=== PATIENT | female | born 1940 | race Caucasian/White ===

== ENCOUNTER 2016-11-02 14:29 | Outpatient (CLI) | payer MEDICARE, OTHER | END 2016-11-02 14:30 | disposition critical access hospital (66) | LOC: EMS 14:29 | PROVIDERS: ATTEND Surgery | DX: R41.0 Disorientation, unspecified (principal); R50.9 Fever, unspecified; R53.83 Other fatigue | CPT/HCPCS: A0425; A0429 ==

== ENCOUNTER 2016-11-02 14:42 | Emergency (ER) | payer MEDICARE, OTHER ==
[2016-11-02] MEDS ORDERED: ACETAMINOPHEN 325 MG TABLET PO STA (14:59)
[2016-11-02] MEDS ORDERED: ACETAMINOPHEN 325 MG TABLET PO ONE (15:18)
--- NOTE | 2016-11-02 15:19 | ED Physician Documentation ---
History of Present Illness - Stated complaint Stated Complaint: FEVER - Chief complaint Chief Complaint: Fever - History obtained from History obtained from: Patient, Family - Additonal information Additional information: Patient is a pleasant 76-year-old female who lives in her private home. She is accompanied by her . She was fine yesterday he says. Today she slept till about noon and woke up and is very sleepy and appeared confused. She is complaining of a headache and appeared bright red in appearance and was palpably warm to touch. She also complained of shortness of breath at that time. Currently the patient complains of a headache and denies any chest pain, shortness of breath, nausea, vomiting constipation diarrhea or lower urinary symptoms. She has a history of type 2 diabetes treated with diet, asthma, migraine headaches and has had cataract and knee surgery in the past as well as a hysterectomy. She does have a history of urinary incontinence. Review of systems: For pertinent positive and negatives in the review of systems please see the history of present illness, otherwise all other systems have been reviewed and are negative. Dragon disclaimer: Parts of this medical record were created using voice recognition technology. Because of the inherent limitations of this system, occasional same sounding word substitutions do occur and persist despite proofreading. Please read the document for context. Review of Systems Constitutional: reports: Fever, Chills Nose: denies: Rhinorrhea / runny nose, Foreign Body Throat: denies: Oral lesions / sores Cardiac: denies: Chest pain / pressure, Palpitations Respiratory: reports: Dyspnea. denies: Cough, Hemoptysis, Wheezing GI: denies: Abdominal Pain, Abdominal Swelling, Nausea, Vomiting, Bloody / black stool : denies: Dysuria, Frequency, LMP Skin: denies: Rash, Lesions Musculoskeletal: denies: Neck pain, Extremity pain Neurologic: reports: Generalized weakness, Confused, Altered mental status PD PAST MEDICAL HISTORY - Past Medical History Past Medical History: Yes Cardiovascular: High cholesterol Respiratory: Asthma Endocrine/Autoimmune: Type 2 diabetes - Past Surgical History Past Surgical History: Yes Ortho: Arthroscopic surgery /SURGICAL RESIDENT: Hysterectomy HEENT: Cataracts - Present Medications Home Medications: Ambulatory Orders Medication Instructions Recorded Confirmed Albuterol 11/02/16 Carbidopa/Levodopa 1 tab PO DAILY 11/02/16 11/02/16 [Carbidopa-Levodopa 25-100 Tab] Cephalexin [Keflex] 500 mg PO QID #20 capsule 11/02/16 Enalapril/Hydrochlorothiazide 1 tab PO DAILY 11/02/16 11/02/16 [Enalapril-Hctz 10-25 mg Tablet] Fluoxetine HCl [Prozac] 40 mg PO DAILY 11/02/16 11/02/16 Gabapentin 300 mg PO DAILY 11/02/16 11/02/16 Montelukast [Singulair] 10 mg 11/02/16 Oxybutynin Chloride [Ditropan Xl] 10 mg PO DAILY 11/02/16 11/02/16 Solifenacin Succinate [Vesicare] 5 mg PO DAILY 11/02/16 11/02/16 Sumatriptan Succinate [Imitrex] PRN 11/02/16 - Allergies Allergies/Adverse Reactions: Allergies Allergy/AdvReac Type Severity Reaction Status Date / Time Jsiumtc-Zer-Kor Reductase Allergy Unknown Verified 11/02/16 14:47 Inhibitor - Social History Does the pt smoke?: No Smoking Status: Never smoker Does the pt have substance abuse?: No Results - Vitals Vitals: Vital Signs - 24 hr 11/02/16 11/02/16 11/02/16 14:46 17:43 17:44 Temperature 38.3 C H Heart Rate 79 67 Respiratory 18 11 L 16 Rate Blood Pressure 126/63 99/62 O2 Saturation 96 96 11/02/16 17:58 Temperature 37.5 C Heart Rate Respiratory Rate Blood Pressure O2 Saturation Oxygen O2 Source Room air - Labs Labs: Laboratory Tests 11/02/16 11/02/16 11/02/16 15:24 15:35 15:35 WBC 17.2 H RBC 3.87 L Hgb 11.6 L Hct 34.2 L MCV 88.5 MCH 30.1 MCHC 34.0 RDW 13.6 Plt Count 192 MPV 8.7 Neut # 14.7 H Lymph # 1.2 L Bradley # 1.2 H Eos # 0.0 Baso # 0.1 Absolute Nucleated RBC 0.01 Nucleated RBCs 0.0 PT 13.7 H INR 1.2 Sodium Potassium Chloride Carbon Dioxide Anion Gap BUN Creatinine Estimated GFR (MDRD) Glucose Lactic Acid Calcium Total Bilirubin AST ALT Alkaline Phosphatase Troponin I Total Protein Albumin Globulin Albumin/Globulin Ratio Lipase Urine Color YELLOW Urine Clarity CLEAR Urine pH 7.0 Ur Specific [place] <=1.005 Urine Protein NEGATIVE Urine Glucose (UA) NEGATIVE Urine Ketones NEGATIVE Urine Occult Blood MODERATE H Urine Nitrite POSITIVE H Urine Bilirubin NEGATIVE Urine Urobilinogen 0.2 (NORMAL) Ur Leukocyte Esterase LARGE H Urine RBC TNTC H Urine WBC >25 H Urine WBC Clumps PRESENT Ur Squamous Epith Cells MOD Squamous H Urine Bacteria Many H Ur Microscopic Review INDICATED Urine Culture Comments NOT INDICATED 11/02/16 11/02/16 11/02/16 15:35 15:35 15:35 WBC RBC Hgb Hct MCV MCH MCHC RDW Plt Count MPV Neut # Lymph # Bradley # Eos # Baso # Absolute Nucleated RBC Nucleated RBCs PT INR Sodium 135 Potassium 3.3 L Chloride 98 L Carbon Dioxide 28 Anion Gap 9.0 BUN 17 Creatinine 0.9 Estimated GFR (MDRD) 61 L Glucose 166 H Lactic Acid 1.1 Calcium 9.0 Total Bilirubin 1.0 AST 21 ALT 23 Alkaline Phosphatase 47 Troponin I < 0.04 Total Protein 7.2 Albumin 3.9 Globulin 3.3 Albumin/Globulin Ratio 1.2 Lipase 14 L Urine Color Urine Clarity Urine pH Ur Specific [place] Urine Protein Urine Glucose (UA) Urine Ketones Urine Occult Blood Urine Nitrite Urine Bilirubin Urine Urobilinogen Ur Leukocyte Esterase Urine RBC Urine WBC Urine WBC Clumps Ur Squamous Epith Cells Urine Bacteria Ur Microscopic Review Urine Culture Comments PD MEDICAL DECISION MAKING - ED course Complexity details: reviewed old records, reviewed results, re-evaluated patient , d/w patient ED course: Resident elderly female who lives at home with her who comes in with with a complaint of fever and mild confusion. On exam she is palpably warm to touch and is alert and oriented although a little slow to respond. Blood pressure and pulse were normal. She was given IV fluids and EKG shows normal sinus rhythm with a normal MA QRS QT interval the rate is 75 the EKG does show voltage criteria consistent with LVH. Blood work on this patient does show elevated white blood cell count. The rest of her labs are unremarkable. Chest x-ray shows no acute disease but urine does demonstrate a urinary tract infection. The patient is watched here for a couple hours in the emergency department she is given Tylenol, Motrin 2 L of normal saline and 1 g Rocephin. At this time she is completely back to baseline. I suspect her altered mental status and symptoms are all related to urinary tract infection on recheck she is doing well. She is offered admission but prefers to go home. Her does agree to watch her very closely and have her come back should any of her symptoms recur. We will place her on outpatient antibiotics. Disposition: To home Clinical impression: 1. Altered mental status-resolved 2. Urinary tract infection Departure - Departure Disposition: , Self Care Clinical Impression: Urinary tract infection Condition: Good Instructions: ED UTI Cystitis Female Follow-Up: Alejandro Ko MD [Primary Care Provider] - Prescriptions: Cephalexin [Keflex] 500 mg PO QID #20 capsule
[2016-11-02 15:42] LABS: BILIRUBIN,URINE NEGATIVE (NEGATIVE)
--- NOTE | 2016-11-02 15:43 | XRAY Preliminary Report ---
Exam: XR Chest 1 View IMPRESSION: No acute intrathoracic plain film abnormality. [facility] SITE ID: [id number]
[2016-11-02 15:44] LABS: BASOPHILS # (AUTO) 0.1 10^3/uL (0.0-0.1); BASOPHILS % (AUTO) 0.7 %; EOSINOPHILS % (AUTO) 0.1 %; HCT - HEMATOCRIT 34.2 % (37.0-47.0); HGB - HEMOGLOBIN 11.6 g/dL (12.0-16.0); LYMPHOCYTES # (AUTO) 1.2 10^3/uL (1.5-3.5); LYMPHOCYTES % (AUTO) 6.8 %; MEAN CORPUSCULAR HEMOGLOBIN 30.1 pg (27.0-31.0); MEAN CORPUSCULAR VOLUME 88.5 fL (81.0-99.0); MEAN PLATELET VOLUME 8.7 fL (7.9-10.8); MONOCYTES # (AUTO) 1.2 10^3/uL (0.0-1.0); NEUTROPHILS # (AUTO) 14.7 10^3/uL (1.5-6.6); NEUTROPHILS % (AUTO) 85.4 %; RED BLOOD COUNT 3.87 10^6/uL (4.20-5.40); RED CELL DISTRIBUTION WIDTH 13.6 % (12.0-15.0); UNCORRECTED WHITE BLOOD COUNT 17.2 x10^3/uL; WHITE BLOOD COUNT 17.2 x10^3/uL (4.8-10.8)
--- NOTE | 2016-11-02 15:45 | XRAY Report ---
EXAM: CHEST RADIOGRAPHY EXAM DATE: 11/02/2016 03:17 PM. CLINICAL HISTORY: FEVER. COMPARISON: None. TECHNIQUE: 1 view. FINDINGS: Lungs/Pleura: No focal opacities evident. No pleural effusion. No pneumothorax. Mediastinum: There is mild cardiomegaly with thoracic aortic tortuosity. Other: Likely moderate-sized hiatal hernia. IMPRESSION: No acute intrathoracic plain film abnormality. [facility] Referring Provider Line: [phone] SITE ID: [id number]
[2016-11-02 15:58] LABS: INR 1.2 (0.8-1.2); PT - PROTHROMBIN TIME 13.7 secs (9.9-12.6)
[2016-11-02 16:00] LABS: ALBUMIN/GLOBULIN RATIO 1.2 (1.0-2.2); CREATININE 0.9 mg/dL (0.4-1.0); POTASSIUM 3.3 mmol/L (3.5-5.0); TOTAL PROTEIN 7.2 g/dL (6.7-8.2)
[2016-11-02 16:14] LABS: UA w/ MICROSCOPIC CHARGE YES
[2016-11-02 16:15] LABS: WBC,URINE >25 /HPF (0-5)
[2016-11-02 16:16] LABS: UR CULTURE IF IND NOT INDICATED
[2016-11-02] MEDS ORDERED: cefTRIAXone 1 GM VIAL IM STA (16:33)
[2016-11-02] MEDS ORDERED: SODIUM CHLORIDE 0.9% 1,000 ML IV ONE (16:38)
[2016-11-02] MEDS ORDERED: IBUPROFEN 600 MG TABLET PO STA (16:38)
[2016-11-02] MEDS ORDERED: cefTRIAXone 1 GM in SODIUM CHLORIDE 0.9% MINIBAG 100 ML IV STA (16:46)
[2016-11-02] MEDS ORDERED: IBUPROFEN 600 MG TABLET PO ONE (16:50)
[2016-11-02] MEDS ORDERED: SODIUM CHLORIDE FLUSH 0.9% 10 ML SYRINGE IVP ONE (16:51)
[2016-11-02] MEDS ORDERED: cefTRIAXone 1 GM VIAL ONE (16:51)
[2016-11-02 18:49] VITALS: BP 110/66
== END 2016-11-02 18:40 | disposition home or self-care (01) ==
LOC: EDUNIT# → ED 14:42
DX: N39.0 Urinary tract infection, site not specified (principal); I45.2 Bifascicular block; E11.9 Type 2 diabetes mellitus without complications
CPT/HCPCS: 36415; 71010; 80053; 81001; 83605; 83690; 84484; 85025; 85610; 87040; 87181; 93005; 96372; 96374; 99284; A9270; 81003; 87086

== ENCOUNTER 2016-11-03 10:10 | Inpatient (IN) | payer MEDICARE, OTHER ==
--- NOTE | 2016-11-03 12:07 | ED Physician Documentation ---
History of Present Illness - Stated complaint Stated Complaint: INFECTION RE CHECK - Chief complaint Chief Complaint: UTI - History obtained from History obtained from: Patient, Family - History of Present Illness Timing: Yesterday - Additonal information Additional information: 76-year-old female was seen in the emergency department yesterday for acute illness with symptoms of excessive sleepiness and confusion and was found to have urinary tract infection. She was called back to the emergency department today because her blood grew out a gram-negative organism. She states that she feels somewhat better today she does still have chills and is slower than usual but does not feel sick like she did yesterday.Yesterday she received 2 L of saline and 1 g of Rocephin in the emergency department and she has been placed on some Keflex. Review of Systems Constitutional: reports: Fever, Chills, Myalgias, Fatigue Eyes: denies: Decreased vision Ears: denies: Ear pain Nose: denies: Rhinorrhea / runny nose, Congestion Throat: denies: Sore throat Cardiac: denies: Chest pain / pressure, Palpitations Respiratory: denies: Dyspnea, Cough GI: reports: Nausea. denies: Abdominal Pain, Vomiting : reports: Dysuria, Frequency Skin: denies: Rash Musculoskeletal: denies: Neck pain, Back pain, Extremity pain Neurologic: reports: Generalized weakness. denies: Focal weakness, Numbness PD PAST MEDICAL HISTORY - Past Medical History Past Medical History: Yes Cardiovascular: High cholesterol Respiratory: Asthma Endocrine/Autoimmune: Type 2 diabetes - Past Surgical History Past Surgical History: Yes Ortho: Arthroscopic surgery /PASTRY ASSISTANT: Hysterectomy HEENT: Cataracts - Present Medications Home Medications: Ambulatory Orders Medication Instructions Recorded Confirmed Albuterol 11/02/16 Carbidopa/Levodopa 1 tab PO DAILY 11/02/16 11/02/16 [Carbidopa-Levodopa 25-100 Tab] Cephalexin [Keflex] 500 mg PO QID #20 capsule 11/02/16 Enalapril/Hydrochlorothiazide 1 tab PO DAILY 11/02/16 11/02/16 [Enalapril-Hctz 10-25 mg Tablet] Fluoxetine HCl [Prozac] 40 mg PO DAILY 11/02/16 11/02/16 Gabapentin 300 mg PO DAILY 11/02/16 11/02/16 Montelukast [Singulair] 10 mg 11/02/16 Oxybutynin Chloride [Ditropan Xl] 10 mg PO DAILY 11/02/16 11/02/16 Solifenacin Succinate [Vesicare] 5 mg PO DAILY 11/02/16 11/02/16 Sumatriptan Succinate [Imitrex] PRN 11/02/16 - Allergies Allergies/Adverse Reactions: Allergies Allergy/AdvReac Type Severity Reaction Status Date / Time [id number]-[id number]-Gcc Reductase Allergy Unknown Verified 11/03/16 10:24 Inhibitor - Social History Does the pt smoke?: No Smoking Status: Never smoker Does the pt drink ETOH?: Yes Does the pt have substance abuse?: No - Immunizations Immunizations are current?: Yes - POLST Patient has POLST: No PD ED PE NORMAL - Vitals Vital signs reviewed: Yes (normal. ) - General General: Alert and oriented X 3, Well developed/nourished, Other (The patient is warm to the touch and has shaking chills) - HEENT HEENT: Atraumatic, PERRL, EOMI - Neck Neck: Supple, no meningeal sign - Cardiac Cardiac: RRR, No murmur - Respiratory Respiratory: No respiratory distress, Clear bilaterally - Abdomen Abdomen: Soft, Non tender - Back Back: No CVA TTP, No spinal TTP - Derm Derm: Normal color, Warm and dry, No rash - Extremities Extremities: No deformity, No edema - Neuro Neuro: Alert and oriented X 3, route service manager 2-12 intact, No motor deficit, No sensory deficit, Normal speech - Psych Psych: Normal mood, Normal affect Results - Vitals Vitals: Vital Signs - 24 hr 11/03/16 11/03/16 11/03/16 10:19 11:34 12:35 Temperature 37.1 C 39.6 C H Heart Rate 73 61 70 Respiratory 20 18 16 Rate Blood Pressure 122/64 111/60 116/70 O2 Saturation 94 100 100 Oxygen O2 Source Room air - Labs Labs: Laboratory Tests 11/03/16 12:20 WBC 13.2 H RBC 3.57 L Hgb 10.8 L Hct 31.8 L MCV 89.3 MCH 30.3 MCHC 33.9 RDW 14.0 Plt Count 155 MPV 10.0 Neut # 11.5 H Lymph # 0.9 L [place] # 0.7 Eos # 0.0 Baso # 0.0 Absolute Nucleated RBC 0.00 Nucleated RBCs 0.0 Procedures - IVC sono (time) 1200 Bedside IVC sono: IVC measures (cm) (2.08), Euvolemia PD MEDICAL DECISION MAKING - ED course Complexity details: reviewed old records, reviewed results, re-evaluated patient , considered differential, d/w patient, d/w family ED course: 76 y/o female with fever and chills has a UTI and was treated for this yesterday in the ED with rocephin IV and saline and felt improved. She continues to have some weakness and has spiked a fever in the ED this afternoon. She was asked to come back to the ED today when her blood cultures grew our Klebsiell pneumonia from both anerobic bottles. Here in the ED a line is begun and she is given an second dose of rocephin and prepared for admission. Departure - Departure Disposition: 66 [facility] DC/Xfer Clinical Impression: Bacteremia due to Gram-negative bacteria Urinary tract infection Qualifiers: Urinary tract infection type: acute cystitis Hematuria presence: without hematuria Qualified Code(s): N30.00 - Acute cystitis without hematuria
[2016-11-03] MEDS ORDERED: ACETAMINOPHEN 500 MG TABLET PO STA (12:36)
[2016-11-03] MEDS ORDERED: ACETAMINOPHEN 500 MG TABLET PO ONE (12:43)
[2016-11-03] MEDS ORDERED: SODIUM CHLORIDE FLUSH 0.9% 10 ML SYRINGE IVP ONE (12:43)
[2016-11-03 13:00] LABS: BASOPHILS % (AUTO) 0.2 %; EOSINOPHILS % (AUTO) 0.3 %; HCT - HEMATOCRIT 31.8 % (37.0-47.0); HGB - HEMOGLOBIN 10.8 g/dL (12.0-16.0); LYMPHOCYTES # (AUTO) 0.9 10^3/uL (1.5-3.5); LYMPHOCYTES % (AUTO) 6.9 %; MEAN CORPUSCULAR HEMOGLOBIN 30.3 pg (27.0-31.0); MEAN CORPUSCULAR HGB CONC 33.9 g/dL (32.0-36.0); MEAN CORPUSCULAR VOLUME 89.3 fL (81.0-99.0); MONOCYTES # (AUTO) 0.7 10^3/uL (0.0-1.0); MONOCYTES % (AUTO) 5.3 %; NEUTROPHILS # (AUTO) 11.5 10^3/uL (1.5-6.6); NEUTROPHILS % (AUTO) 87.3 %; RED BLOOD COUNT 3.57 10^6/uL (4.20-5.40); UNCORRECTED WHITE BLOOD COUNT 13.2 x10^3/uL; WHITE BLOOD COUNT 13.2 x10^3/uL (4.8-10.8)
[2016-11-03 13:13] LABS: ALBUMIN/GLOBULIN RATIO 1.2 (1.0-2.2); BILIRUBIN,TOTAL 0.8 mg/dL (0.2-1.0); CALCIUM 8.9 mg/dL (8.5-10.3); POTASSIUM 2.9 mmol/L (3.5-5.0); TOTAL PROTEIN 6.9 g/dL (6.7-8.2)
[2016-11-03] MEDS ORDERED: ONDANSETRON 4 MG/2 ML VIAL IVP PRN (13:39)
[2016-11-03] MEDS ORDERED: oxyCODONE 5 MG TABLET PO PRN ×2 (13:39)
[2016-11-03] MEDS ORDERED: PROMETHAZINE 25 MG/1 ML VIAL IM PRN (13:39)
[2016-11-03] MEDS ORDERED: ACETAMINOPHEN 325 MG TABLET PO PRN (13:39)
[2016-11-03] MEDS ORDERED: ZOLPIDEM 5 MG TABLET PO PRN (13:39)
[2016-11-03] MEDS ORDERED: IBUPROFEN 600 MG TABLET PO PRN (13:39)
[2016-11-03] MEDS ORDERED: PROCHLORPERAZINE 10 MG/2 ML VIAL IVP PRN (13:39)
[2016-11-03] MEDS ORDERED: ALBUTEROL NEB 2.5 MG/3 ML INH PRN (13:42)
[2016-11-03] MEDS ORDERED: SODIUM CHLORIDE 0.9% 1,000 ML IV SCH (14:00)
[2016-11-03 14:24] LABS: BILIRUBIN,URINE NEGATIVE (NEGATIVE)
[2016-11-03 14:29] LABS: UA w/ MICROSCOPIC CHARGE YES
[2016-11-03 14:33] LABS: UR CULTURE IF IND NOT INDICATED; WBC,URINE >25 /HPF (0-5)
--- NOTE | 2016-11-03 14:39 | HISTORY & PHYSICAL EXAMINATION ---
Chief Complaint - Chief Complaint Chief Complaint: Positive blood culture History of Present Illness - Admitted From Admitted From:: Emergency department - History Obtained From Records Reviewed: Yes History obtained from: Patient Exam Limitations: None - History of Present Illness HPI Comment/Other: Patient is a 76-year-old female with a past medical history significant for hypertension, asthma, depression, migraine headaches, hyperlipidemia, restless leg syndrome, peripheral neuropathy and recent diagnosis of diet-controlled diabetes type 2 who presented to the emergency department with a chief complaint of positive blood cultures. The patient had come into the emergency department yesterday with complaints of chills, generalized weakness and lethargy. She states that prior to yesterday she was in her normal state of health but when she came to wake up yesterday morning she felt extremely fatigued and could not get out of bed she slept into the afternoon at which point her became concerned as the patient was having rigors and was very weak and lethargic. The patient was brought into the emergency department via ambulance. The patient denied any headaches, blurred vision, runny nose, sore throat, cough, chest pain, shortness of air, abdominal pain, urinary urgency, urinary frequency, dysuria, focal neurologic deficits, muscle aches or joint pains. The patient did admit to a decreased appetite, nausea and stated that she did vomit yesterday. On presentation to the emergency room yesterday the patient did appear to be quite ill and was febrile with a temperature of 38.3. The patient had a leukocytosis with a WBC of 17.2 but her lactic acid was normal. The patient's urinalysis was grossly positive and she was determined to have a urinary tract infection. The patient was given IV fluids in the emergency department and started on antibiotics. The patient seemed to be much improved and although the emergency room physician wanted the patient to stay and be hospitalized the patient stated that she felt much better and wanted to go home. The patient was discharged home and states that she has been feeling better since yesterday however she does continue to have episodic chills. Today the patient's blood cultures returned and she was growing Klebsiella pneumonia with identification and sensitivities to follow therefore she was called into the emergency department to be started on IV antibiotics and admitted to the hospital. On presentation to the emergency room today the patient is again febrile with a temperature of 39.6 however she appears to be much less ill appearing. The remainder of her vital signs were within normal limits her leukocytosis had improved. Given that patient was still febrile and sensitivities had not returned we did admit to the patient to the hospital with bacteremia secondary to UTI. Review of Systems - Other Findings Other Findings: A comprehensive of review of systems was performed and pertinent positives and negatives are stated above in the HPI the remainder of the review of systems is negative History - Past Medical History Cardiovascular: reports: Hypertension, High cholesterol Respiratory: reports: Asthma Neuro: reports: Headache/migraine, Peripheral neuropathy Endocrine/Autoimmune: reports: Type 2 diabetes Psych: reports: Depression MRSA Hx?: No Other Past Medical History: 1. Hypertension. 2. Asthma. 3. Depression. 4. Migraines. 5. Hyperlipidemia. 6. Peripheral neuropathy. 7. Restless leg syndrome. 8. Type 2 diabetes diet-controlled - Past Surgical History Ortho: reports: Arthroscopic surgery /TRAINING COORDINATOR: reports: Hysterectomy HEENT: reports: Cataracts - Family & Social History Family History: Mother: , Alzheimer's Disease, CVA/TIA, Father: , CVA/TIA, Brother: Diabetes, Type 2 Family History Comment/Other: Patient's paternal grandmother had diabetes. Patient's brother has diabetes. Patient's father of a stroke. Patient's mother had Alzheimer's and also of stroke. Living arrangement: At home Living Situation: With spouse/s.o. Social History Notes: The patient is originally from [facility] she moved with her to [facility] 18 years ago in 1998. She has 2 sons who are twins. One is a urologist and the other is a forestry pilot. She does not have any grandchildren. She lives with her in [place] and is fully independent. She denies any tobacco use, alcohol abuse or illicit drug use. - Substance History Use: Uses substance without health or social issues: NONE Abuse: Recurrent use of substance despite neg consequences: NONE Dependence: Experiences withdrawal or developed tolerances: NONE - POLST Patient has POLST: No POLST Status: Full Code Meds/Allgy - Home Medications Home Medications: Ambulatory Orders Medication Instructions Recorded Confirmed Albuterol 11/02/16 Cephalexin [Keflex] 500 mg PO QID #20 capsule 11/02/16 Enalapril/Hydrochlorothiazide 1 tab PO DAILY 11/02/16 11/02/16 [Enalapril-Hctz 10-25 mg Tablet] Fluoxetine HCl [Prozac] 40 mg PO DAILY 11/02/16 11/02/16 Gabapentin 300 mg PO DAILY 11/02/16 11/02/16 Montelukast [Singulair] 10 mg 11/02/16 Oxybutynin Chloride [Ditropan Xl] 10 mg PO DAILY 11/02/16 11/02/16 Solifenacin Succinate [Vesicare] 5 mg PO DAILY 11/02/16 11/02/16 Sumatriptan Succinate [Imitrex] PRN 11/02/16 Carbidopa/Levodopa ER 25/100 1 tab PO BID 11/03/16 11/03/16 [Sinemet Cr 25 mg/100 mg] - Allergies Allergies/Adverse Reactions: Allergies Allergy/AdvReac Type Severity Reaction Status Date / Time [id number] Reductase Allergy Unknown Verified 11/03/16 10:24 Inhibitor Exam - Vital Signs Reviewed Vital Signs: Yes Vital Signs: Vital Signs x48h Temp Pulse Resp BP Pulse Ox 11/03/16 14:14 38.4 C H 11/03/16 14:12 69 17 127/52 L 96 11/03/16 13:34 39.2 C H 72 18 130/69 11/03/16 12:35 39.6 C H 70 16 116/70 100 11/03/16 11:34 61 18 111/60 100 11/03/16 10:19 37.1 C 73 20 122/64 94 - Physical Exam General Appearance: positive: No acute distress, Alert Eyes Bilateral: positive: Normal inspection, PERRL, EOMI, No lid inflammation, Conjunctivae nml, No scleral icterus ENT: positive: ENT inspection nml, Pharynx nml, Dry mucous membranes. negative : Purulent nasal drainage, Pharyngeal erythema, Oral lesions Neck: positive: Nml inspection, Thyroid nml, No JVD, Trachea midline. negative : Thyromegaly, Lymphadenopathy (R), Lymphadenopathy (L), Carotid bruit, Tracheal deviation Respiratory: positive: Chest non-tender, No respiratory distress, Breath sounds nml. negative: Wheezes, Rales, Rhonchi Cardiovascular: positive: Regular rate & rhythm, No murmur, No gallop Peripheral Pulses: positive: 2+ Abdomen: positive: Non-tender, No distention. negative: Guarding, Rebound, Hepatomegaly Back: positive: Nml inspection. negative: CVA tenderness (R), CVA tenderness (L ) Skin: positive: Color nml, No rash, Warm, Dry. negative: Cyanosis, Pallor Extremities: positive: Non-tender, Full ROM, Nml appearance, No pedal edema Neurologic/Psychiatric: positive: Oriented x3, CN's nml (2-12), Motor nml, Sensation nml, Mood/affect nml Conclusion/Plan - Problem List (1) Bacteremia due to Klebsiella pneumoniae Conclusion/Plan: Patient presented to the ER yesterday with fever, chills, leukocytosis of 17.2, malaise and lethargy Found to have UTI and improved with abx and IVFs she wanted to go home and therefore was discharged from ER yesterday Today she returns as blood cultures are growing Kleb Pneumo likely secondary to her UTI as CXR was negative Patient continues to have have fevers with Tmax of 39.6 today Plan: Admit with IV abx starting Ceftriaxone IV Tylenol for fevers Monitor vitals closely as patient could easily become septic Repeat blood cx Awaiting blood and urine cx for susceptibilities If fevers persist or blood cx not clearing will need to get imaging to rule out abscess IVFs (2) Urinary tract infection Conclusion/Plan: Patient presented with fevers, chills, lethargy, malaise and had leukocytosis with positive UA yesterday sent home with PO keflex Back today as her blood cx were positive for Kleb Pneumo continues to spike fevers but WBC improved Plan: Stop Keflex Start IV ceftriaxone Follow up blood and urine cx for susceptibilities IVFs Tylenol for fevers Qualifiers: Urinary tract infection type: acute cystitis Hematuria presence: without hematuria Qualified Code(s): N30.00 - Acute cystitis without hematuria (3) Hypokalemia Conclusion/Plan: Likely secondary to bacteremia, dehydration from infection and vomiting yesterday Add K to IVFs and give PO K Monitor K daily (4) Diabetes Conclusion/Plan: Recently diagnosed with DM which is diet controlled Check HbA1C Monitor BG ACHS SS insulin Diabetic diet IVFs Qualifiers: Diabetes mellitus type: type 2 Diabetes mellitus complication detail: with nephropathy Diabetes mellitus nursing home insulin use: without nursing home use (5) Hypertension Conclusion/Plan: BP is borderline low Will need to keep close eye on BP as patient is bacteremic and could become septic and hypotensive Give IVFs Will continue home meds but hold for low BPs Monitor closely Qualifiers: Hypertension type: essential hypertension Qualified Code(s): I10 - Essential (primary) hypertension (6) Depression Conclusion/Plan: Continue prozac Mood stable (7) Prophylactic use of low molecular weight heparin for venous thromboembolism (VTE) Conclusion/Plan: Place on lovenox while hospitalized - Lab Results Lab results reviewed: Yes Fish Bones: 11/03/16 12:20 11/03/16 12:20 Other Lab Results: Laboratory Results - last 24 hr 11/03/16 11/03/16 11/03/16 11:15 12:20 12:20 WBC 13.2 H RBC 3.57 L Hgb 10.8 L Hct 31.8 L MCV 89.3 MCH 30.3 MCHC 33.9 RDW 14.0 Plt Count 155 MPV 10.0 Neut # 11.5 H Lymph # 0.9 L Trigg # 0.7 Eos # 0.0 Baso # 0.0 Absolute Nucleated RBC 0.00 Nucleated RBCs 0.0 Sodium 134 L Potassium 2.9 L Chloride 98 L Carbon Dioxide 25 Anion Gap 11.0 BUN 17 Creatinine 1.0 Estimated GFR (MDRD) 54 L Glucose 161 H Calcium 8.9 Total Bilirubin 0.8 AST 36 ALT 25 Alkaline Phosphatase 49 Troponin I Total Protein 6.9 Albumin 3.8 Globulin 3.1 Albumin/Globulin Ratio 1.2 Lipase 20 L Urine Color YELLOW Urine Clarity SL. CLOUDY Urine pH 6.0 Ur Specific [place] 1.010 Urine Protein NEGATIVE Urine Glucose (UA) NEGATIVE Urine Ketones NEGATIVE Urine Occult Blood SMALL H Urine Nitrite NEGATIVE Urine Bilirubin NEGATIVE Urine Urobilinogen 0.2 (NORMAL) Ur Leukocyte Esterase MODERATE H Urine RBC 0-5 Urine WBC >25 H Urine WBC Clumps PRESENT Ur Epithelial Cells FEW Renal Tubular Ur Squamous Epith Cells MOD Squamous H Urine Bacteria Few Ur Microscopic Review INDICATED Urine Culture Comments NOT INDICATED 11/03/16 12:20 WBC RBC Hgb Hct MCV MCH MCHC RDW Plt Count MPV Neut # Lymph # Trigg # Eos # Baso # Absolute Nucleated RBC Nucleated RBCs Sodium Potassium Chloride Carbon Dioxide Anion Gap BUN Creatinine Estimated GFR (MDRD) Glucose Calcium Total Bilirubin AST ALT Alkaline Phosphatase Troponin I < 0.04 Total Protein Albumin Globulin Albumin/Globulin Ratio Lipase Urine Color Urine Clarity Urine pH Ur Specific [place] Urine Protein Urine Glucose (UA) Urine Ketones Urine Occult Blood Urine Nitrite Urine Bilirubin Urine Urobilinogen Ur Leukocyte Esterase Urine RBC Urine WBC Urine WBC Clumps Ur Epithelial Cells Ur Squamous Epith Cells Urine Bacteria Ur Microscopic Review Urine Culture Comments - Diagnostic Imaging Results Diagnostic Imaging Results: positive: Final report reviewed Diagnostic Imaging Results Comments: Chest x-ray Impression: No acute intrathoracic plain film abnormality. - EKG Results EKG Interpreted Independently: Yes EKG Findings: No ST elevations no ischemic changes Issues/Core Measures - Anticipated LOS Anticipated Stay Length: 2 or more midnights - DVT/VTE - Prophylaxis VTE/DVT Prophylaxis med ordered at admit?: Yes
[2016-11-03] MEDS ORDERED: POTASSIUM CHLORIDE 20 MEQ TABLET PO STA (14:53)
[2016-11-03 14:55] LABS: HEMOGLOBIN A1C 0.57 g/dL
[2016-11-03] MEDS: PHENAZOPYRIDINE 100 MG TABLET PO SCH ×2 (15:00→21:32)
[2016-11-03] MEDS: SODIUM CHLORIDE FLUSH 0.9% 10 ML SYRINGE IVP SCH ×2 (15:01→21:33)
[2016-11-03] MEDS: NS W/20 MEQ KCL 1,000 ML IV SCH ×2 (15:06→22:15)
[2016-11-03] MEDS: INSULIN ASPART 300 UNIT/3 ML PEN SUBQ SCH ×2 (16:42→21:32)
[2016-11-03] MEDS: SODIUM CHLORIDE FLUSH 0.9% 10 ML SYRINGE IVP PRN (16:45)
[2016-11-03] MEDS: CARBIDOPA/LEVODOPA ER 25 MG/100 MG TABLET PO SCH (21:32)
[2016-11-03] MEDS: MONTELUKAST 10 MG TABLET PO SCH (21:32)
[2016-11-03] MEDS: OXYBUTYNIN 5MG TABLET PO SCH (21:33)
[2016-11-04] MEDS: NS W/20 MEQ KCL 1,000 ML IV SCH ×3 (06:10→22:59)
[2016-11-04] MEDS: PHENAZOPYRIDINE 100 MG TABLET PO SCH ×3 (06:11→21:08)
[2016-11-04] MEDS: SODIUM CHLORIDE FLUSH 0.9% 10 ML SYRINGE IVP SCH ×3 (06:12→21:08)
[2016-11-04] MEDS: SODIUM CHLORIDE FLUSH 0.9% 10 ML SYRINGE IVP PRN ×2 (06:22→09:17)
[2016-11-04 08:09] LABS: BASOPHILS # (AUTO) 0.1 10^3/uL (0.0-0.1); BASOPHILS % (AUTO) 0.6 %; EOSINOPHILS # (AUTO) 0.2 10^3/uL (0.0-0.7); EOSINOPHILS % (AUTO) 2.5 %; HCT - HEMATOCRIT 28.9 % (37.0-47.0); HGB - HEMOGLOBIN 9.8 g/dL (12.0-16.0); LYMPHOCYTES # (AUTO) 0.9 10^3/uL (1.5-3.5); LYMPHOCYTES % (AUTO) 9.7 %; MEAN CORPUSCULAR HEMOGLOBIN 30.4 pg (27.0-31.0); MEAN CORPUSCULAR HGB CONC 33.8 g/dL (32.0-36.0); MEAN PLATELET VOLUME 8.9 fL (7.9-10.8); MONOCYTES # (AUTO) 0.6 10^3/uL (0.0-1.0); MONOCYTES % (AUTO) 6.6 %; NEUTROPHILS # (AUTO) 7.2 10^3/uL (1.5-6.6); NEUTROPHILS % (AUTO) 80.6 %; RED BLOOD COUNT 3.21 10^6/uL (4.20-5.40); RED CELL DISTRIBUTION WIDTH 13.7 % (12.0-15.0); UNCORRECTED WHITE BLOOD COUNT 8.9 x10^3/uL; WHITE BLOOD COUNT 8.9 x10^3/uL (4.8-10.8)
[2016-11-04 08:22] LABS: ALBUMIN/GLOBULIN RATIO 1.3 (1.0-2.2); BILIRUBIN,TOTAL 0.9 mg/dL (0.2-1.0); BUN - BLOOD UREA NITROGEN 14 mg/dL (6-20); CALCIUM 8.4 mg/dL (8.5-10.3); CARBON DIOXIDE - CO2 23 mmol/L (21-32); CHLORIDE 105 mmol/L (101-111); CREATININE 0.7 mg/dL (0.4-1.0); GFR - MDRD 81 (>89); GLUCOSE 151 mg/dL (70-100); MAGNESIUM 1.5 mg/dL (1.7-2.8); PHOSPHORUS 2.5 mg/dL (2.5-4.6); POTASSIUM 3.4 mmol/L (3.5-5.0); SODIUM 137 mmol/L (135-145); TOTAL PROTEIN 5.7 g/dL (6.7-8.2)
[2016-11-04] MEDS ORDERED: CARBIDOPA/LEVODOPA 25 MG/100 MG TABLET PO SCH (09:00)
[2016-11-04] MEDS ORDERED: GABAPENTIN 300 MG CAPSULE PO SCH ×2 (09:00→17:00)
[2016-11-04] MEDS: INSULIN ASPART 300 UNIT/3 ML PEN SUBQ SCH ×4 (09:14→21:09)
[2016-11-04] MEDS: CARBIDOPA/LEVODOPA ER 25 MG/100 MG TABLET PO SCH ×2 (09:26→21:08)
[2016-11-04] MEDS: ENOXAPARIN 40 MG/0.4 ML SYRINGE SUBQ SCH (09:26)
[2016-11-04] MEDS: ENALAPRIL 5 MG TABLET PO SCH (09:26)
[2016-11-04] MEDS: FAMOTIDINE 20 MG TABLET PO SCH (09:26)
[2016-11-04] MEDS: FLUoxetine 10 MG CAPSULE PO SCH (09:26)
[2016-11-04] MEDS: OXYBUTYNIN 5MG TABLET PO SCH ×2 (09:27→21:08)
[2016-11-04] MEDS: POLYETHYLENE GLYCOL 3350 17 GM PACKET PO SCH (09:29)
[2016-11-04] MEDS: hydroCHLOROthiazide 25 MG TABLET PO SCH (09:29)
[2016-11-04] MEDS: SOLIFENACIN SUCCINATE 5 MG PO SCH (09:30)
--- NOTE | 2016-11-04 10:04 | CT Report ---
CT ABDOMEN AND PELVIS WITHOUT CONTRAST: 11/04/2016 CLINICAL INDICATION: UTI, hematuria. TECHNIQUE: Axial CT images of the abdomen and pelvis were obtained without oral or intravenous contr ast, according to renal stone protocol. No previous CT is available for comparison. FINDINGS: Limited evaluation of the lung bases demonstrates trace effusions and atelectasis. A mode rate hiatal hernia is present. ABDOMEN: Allowing for the lack of intravenous contrast, the liver, spleen, pancreas and adrenal glan ds are unremarkable. The kidneys demonstrate small nonobstructing calculi bilaterally, measuring 1-2 mm in diameter. No hydronephrosis or ureterolithiasis is seen. There is a small cortical cyst esdras ing from the posterior left kidney. The gallbladder is not dilated. No angel dilatation, free gas, or free fluid is present. Colonic diverticulosis is seen, without CT evidence of diverticulitis. PELVIS: The distal ureters and urinary bladder appear unremarkable. Postoperative changes of hyster ectomy are present. No free fluid or adenopathy is seen. Diverticulosis is present, without CT evid ence of diverticulitis. Osseous structures demonstrate degenerative changes. IMPRESSION: A 1-2 MM NONOBSTRUCTING RENAL CALCULI BILATERALLY. NO EVIDENCE OF HYDRONEPHROSIS. MODE RATE HIATAL HERNIA. In accordance with CT protocol optimization, one or more of the following dose reduction techniques w ere utilized for this exam: automated exposure control, adjustment of mA and/or KV based on patient size, or use of iterative reconstructive technique. JOB #: [id number] EXT JOB #:[id number]
[2016-11-04] MEDS ORDERED: cefTRIAXone 2 GM in SODIUM CHLORIDE 0.9% MINIBAG 100 ML IV SCH (15:00)
[2016-11-04] MEDS: cefTRIAXone 2 GM in SODIUM CHLORIDE 0.9% MINIBAG 100 ML IV SCH (15:57)
--- NOTE | 2016-11-04 16:25 | PROVIDER PROGRESS NOTE ---
Assessment/Plan - Problem List (1) Bacteremia due to Klebsiella pneumoniae Assessment/Plan: Patient presented to the ER with fever, chills, leukocytosis of 17.2, malaise and lethargy Found to have UTI and improved with abx and IVFs she wanted to go home and therefore was discharged from ER She returned next day as blood cultures were growing Kleb Pneumo likely secondary to her UTI as CXR was negative Patient continued to have have fevers with Tmax of 39.6 on return IV Ceftriaxone day 2 Tylenol for fevers No fevers overnihg WBC improved to Repeat blood cx negative Awaiting blood and urine cx susceptibilities to de-escalate abx Patient improving (2) Urinary tract infection Conclusion/Plan: Patient presented with fevers, chills, lethargy, malaise and had leukocytosis with positive UA sent home with PO keflex Returned as her blood cx were positive for Kleb Pneumo and continued to spike fevers but WBC improved Stopped Keflex IV ceftriaxone day 2 Follow up blood and urine cx for susceptibilities and de-escalate abx IVFs Tylenol for fevers CT abd/pelvis to rule out infected stone given blood in urine Improving Qualifiers: Urinary tract infection type: acute cystitis Hematuria presence: without hematuria Qualified Code(s): N30.00 - Acute cystitis without hematuria (3) Hypokalemia Conclusion/Plan: Likely secondary to bacteremia, dehydration from infection and vomiting yesterday K was 3.4 Replace Monitor K (4) Diabetes Conclusion/Plan: Recently diagnosed with DM which is diet controlled HbA1C is 6.8 Monitor BG ACHS SS insulin Diabetic diet IVFs Stable Qualifiers: Diabetes mellitus type: type 2 Diabetes mellitus complication detail: with nephropathy Diabetes mellitus nursing home insulin use: without nursing home use (5) Hypertension Conclusion/Plan: BP elevated today Continue home meds Monitor closely Qualifiers: Hypertension type: essential hypertension Qualified Code(s): I10 - Essential (primary) hypertension (6) Depression Conclusion/Plan: Continue prozac Mood stable (7) Prophylactic use of low molecular weight heparin for venous thromboembolism (VTE) Conclusion/Plan: Place on lovenox while hospitalized - Current Meds Current Meds: Current Medications Generic Name Dose Route Start Last Admin Trade Name Freq PRN Reason Stop Dose Admin Acetaminophen 650 mg 11/03/16 13:39 11/04/16 15:09 Tylenol PO 650 mg Q4HR PRN Administration Pain 1 to 4 Carbidopa/Levodopa 1 tab 11/03/16 21:00 11/04/16 09:26 Sinemet Cr 25 Mg/100 Mg PO 1 tab BID KEL Administration Enalapril Maleate 10 mg 11/04/16 09:00 11/04/16 09:26 Vasotec PO 10 mg DAILY KEL Administration Enoxaparin Sodium 40 mg 11/04/16 09:00 11/04/16 09:26 Lovenox SUBQ 40 mg DAILY KLE Administration Famotidine 20 mg 11/04/16 09:00 11/04/16 09:26 Pepcid PO 20 mg DAILY KEL Administration Fluoxetine HCl 40 mg 11/04/16 09:00 11/04/16 09:26 Prozac PO 40 mg DAILY KEL Administration Hydrochlorothiazide 25 mg 11/04/16 09:00 11/04/16 09:29 Hydrodiuril PO 25 mg DAILY KEL Administration Potassium Chloride/Sodium Chloride 1,000 mls @ 125 mls/hr 11/03/16 15:00 15:09 Normal Saline 0.9% W/20 Meq Kcl IV 125 mls/hr .Q8H KEL Administration Ceftriaxone Sodium 2 gm/ 100 mls @ 200 mls/hr 11/04/16 16:00 11/04/16 15:57 Sodium Chloride IV 200 mls/hr DAILY KEL Administration Ibuprofen 600 mg 11/03/16 13:39 11/03/16 20:17 Motrin PO 600 mg Q6HR PRN Administration Pain 1 to 4 Insulin Aspart 1 - 5 unit 11/03/16 17:00 11/04/16 13:29 Novolog SUBQ Not Given 0800,1200,1700,2100 [facility] Protocol Montelukast Sodium 10 mg 11/03/16 21:00 11/03/16 21:32 Singulair PO 10 mg QPM KEL Administration Non-Formulary Medication 5 mg 11/04/16 09:00 11/04/16 09:30 Solifenacin Succinate [Vesicare] PO Not Given DAILY KEL Oxybutynin Chloride 5 mg 11/03/16 21:00 11/04/16 09:27 Ditropan PO 5 mg BID KEL Administration Phenazopyridine HCl 200 mg 11/03/16 14:00 11/04/16 13:53 Pyridium PO 11/05/16 06:01 200 mg TID KEL Administration Polyethylene Glycol 17 gm 11/04/16 09:00 11/04/16 09:29 Miralax PO Not Given DAILY KEL Sodium Chloride 10 ml 11/03/16 13:31 11/04/16 09:17 Normal Saline Flush 0.9% IVP 10 ml PRN PRN Administration NEEDED PER PROVIDER ORDERS Sodium Chloride 10 ml 11/03/16 14:00 11/04/16 15:01 Normal Saline Flush 0.9% IVP Not Given Q8HR KEL - Lab Result Lab results reviewed: Yes Fish Bone Diagrams: 11/04/16 08:03 11/04/16 08:03 - EKG Results EKG Interpreted Independently: Yes - Diagnostic Imaging Results Diagnostic Imaging Results: Final report reviewed - Additional Planning Condition/Complexity: Improved My Orders: My Active Orders 11/03/16 17:00 Insulin Aspart [NovoLOG] 1 - 5 unit SUBQ 0800,1200,1700,2100 11/03/16 21:00 Carbidopa/Levodopa ER 25/100 [Sinemet Cr 25 mg/100 mg] 1 tab PO BID 11/03/16 21:42 Nebulizer [Nebulizer/MDI Tx.] [RC] .Q4PRN 11/03/16 Dinner Carb-controlled Diet [DIET] 11/04/16 09:00 Enoxaparin [Lovenox] 40 mg SUBQ DAILY Famotidine [Pepcid] 20 mg PO DAILY hydroCHLOROthiazide [Hydrodiuril] 25 mg PO DAILY 11/04/16 16:00 cefTRIAXone [Rocephin] 2 gm Sodium Chloride 0.9% Minibag [Normal Saline 0.9% Minibag] 100 ml IV DAILY 11/04/16 17:00 Gabapentin [Neurontin] 300 mg PO 1700 11/05/16 05:00 CBC - COMP BLD CT W/AUTO DIFF [HEME] DAILYLAB CMP, RFLX TO IONIZED CA IF [CHEM] DAILYLAB MAGNESIUM [CHEM] DAILYLAB PHOSPHORUS [CHEM] DAILYLAB 11/06/16 05:00 CBC - COMP BLD CT W/AUTO DIFF [HEME] DAILYLAB CMP, RFLX TO IONIZED CA IF [CHEM] DAILYLAB MAGNESIUM [CHEM] DAILYLAB PHOSPHORUS [CHEM] DAILYLAB 11/07/16 05:00 CBC - COMP BLD CT W/AUTO DIFF [HEME] DAILYLAB CMP, RFLX TO IONIZED CA IF [CHEM] DAILYLAB MAGNESIUM [CHEM] DAILYLAB PHOSPHORUS [CHEM] DAILYLAB 11/08/16 05:00 CBC - COMP BLD CT W/AUTO DIFF [HEME] DAILYLAB CMP, RFLX TO IONIZED CA IF [CHEM] DAILYLAB MAGNESIUM [CHEM] DAILYLAB PHOSPHORUS [CHEM] DAILYLAB Plan Discussed with:: Patient Time Spent: 31-60 minutes Subjective - Subjective Patient Reports: Feeling Better (Patient states she was afebrile last night. She feels much stronger and better. Denies any nausea. No back pain or abdominal pain.) Nursing Reports: No Complaints Objective Vital Signs: Vital Signs - 24 hr 11/03/16 11/04/16 11/04/16 21:10 00:01 07:35 Temperature 36.9 C Heart Rate 72 66 Heart Rate [ 65 Brachial] Respiratory 16 16 16 Rate Blood Pressure 108/57 L [Right Brachial artery] O2 Saturation 92 11/04/16 11/04/16 11/04/16 09:23 09:35 14:00 Temperature 36.8 C 37.7 C H Heart Rate Heart Rate [ 74 69 Brachial] Respiratory 18 16 Rate Blood Pressure 125/56 L 133/59 H [Right Brachial artery] O2 Saturation 99 100 11/04/16 11/04/16 15:11 15:36 Temperature 38.5 C H 38.5 C H Heart Rate Heart Rate [ 74 Brachial] Respiratory 18 Rate Blood Pressure 144/64 H [Right Brachial artery] O2 Saturation 97 Oxygen O2 Source Room air I&O (Last 24 Hrs): Intake and Output Totals x24h 11/02/16 11/03/16 11/04/16 23:59 23:59 23:59 Intake Total 1215 3039 Output Total 500 Balance 1215 2539 General: Alert, Oriented x3, Cooperative, No acute distress HEENT: Atraumatic, PERRLA, EOMI, Mucous membr. moist/pink Neck: Supple, No JVD, No thyromegaly, +2 carotid pulse wo bruit, No LAD Lymphatic: no adenopathy Neuro: Alert, Non Focal, CN 2-12 Grossly Intact, Oriented Times 3 Cardiovascular: Regular rate, Normal S1, Normal S2, No murmurs Respiratory: Chest non-tender, No respiratory distress, Breath sounds nml Abdomen: Normal bowel sounds, Soft, No tenderness, No hepatospenomegaly, No masses Extremities: No clubbing, No cyanosis, No edema, Normal pulses Skin: No rashes, No breakdown - Results Results: Laboratory Results WBC 8.9 x10^3/uL (4.8-10.8) 11/04/16 08:03 RBC 3.21 10^6/uL (4.20-5.40) L 11/04/16 08:03 Hgb 9.8 g/dL (12.0-16.0) L 11/04/16 08:03 Hct 28.9 % (37.0-47.0) L 11/04/16 08:03 MCV 90.0 fL (81.0-99.0) 11/04/16 08:03 MCH 30.4 pg (27.0-31.0) 11/04/16 08:03 MCHC 33.8 g/dL (32.0-36.0) 11/04/16 08:03 RDW 13.7 % (12.0-15.0) 11/04/16 08:03 Plt Count 137 10^3/uL (130-450) 11/04/16 08:03 MPV 8.9 fL (7.9-10.8) 11/04/16 08:03 Neut # 7.2 10^3/uL (1.5-6.6) H 11/04/16 08:03 Lymph # 0.9 10^3/uL (1.5-3.5) L 11/04/16 08:03 [place] # 0.6 10^3/uL (0.0-1.0) 11/04/16 08:03 Eos # 0.2 10^3/uL (0.0-0.7) 11/04/16 08:03 Baso # 0.1 10^3/uL (0.0-0.1) 11/04/16 08:03 Absolute Nucleated RBC 0.00 x10^3/uL 11/04/16 08:03 Nucleated RBCs 0.0 /100WBC 11/04/16 08:03 Sodium 137 mmol/L (135-145) 11/04/16 08:03 Potassium 3.4 mmol/L (3.5-5.0) L 11/04/16 08:03 Chloride 105 mmol/L (101-111) 11/04/16 08:03 Carbon Dioxide 23 mmol/L (21-32) 11/04/16 08:03 Anion Gap 9.0 (6-13) 11/04/16 08:03 BUN 14 mg/dL (6-20) 11/04/16 08:03 Creatinine 0.7 mg/dL (0.4-1.0) 11/04/16 08:03 Estimated GFR (MDRD) 81 (>89) L 11/04/16 08:03 Glucose 151 mg/dL (70-100) H 11/04/16 08:03 POC Whole Bld Glucose 109 mg/dL (70 - 100) H 11/04/16 11:50 Glycated Hemoglobin 6.8 % (4.6-6.2) H 11/03/16 12:20 Estim Average Glucose 148 (70-100) H 11/03/16 12:20 Calcium 8.4 mg/dL (8.5-10.3) L 11/04/16 08:03 Ionized Calcium NO 11/04/16 08:03 Phosphorus 2.5 mg/dL (2.5-4.6) 11/04/16 08:03 Magnesium 1.5 mg/dL (1.7-2.8) L 11/04/16 08:03 Total Bilirubin 0.9 mg/dL (0.2-1.0) 11/04/16 08:03 AST 36 IU/L (10-42) 11/04/16 08:03 ALT 20 IU/L (10-60) 11/04/16 08:03 Alkaline Phosphatase 46 IU/L (42-121) 11/04/16 08:03 Troponin I < 0.04 ng/mL (<0.49) 11/03/16 12:20 Total Protein 5.7 g/dL (6.7-8.2) L 11/04/16 08:03 Albumin 3.2 g/dL (3.2-5.5) 11/04/16 08:03 Globulin 2.5 g/dL (2.1-4.2) 11/04/16 08:03 Albumin/Globulin Ratio 1.3 (1.0-2.2) 11/04/16 08:03 Lipase 20 U/L (22-51) L 11/03/16 12:20 Urine Color YELLOW 11/03/16 11:15 Urine Clarity SL. CLOUDY (CLEAR) 11/03/16 11:15 Urine pH 6.0 PH (5.0-7.5) 11/03/16 11:15 Ur Specific [place] 1.010 (1.002-1.030) 11/03/16 11:15 Urine Protein NEGATIVE mg/dL (NEGATIVE) 11/03/16 11:15 Urine Glucose (UA) NEGATIVE mg/dL (NEGATIVE) 11/03/16 11:15 Urine Ketones NEGATIVE mg/dL (NEGATIVE) 11/03/16 11:15 Urine Occult Blood SMALL (NEGATIVE) H 11/03/16 11:15 Urine Nitrite NEGATIVE (NEGATIVE) 11/03/16 11:15 Urine Bilirubin NEGATIVE (NEGATIVE) 11/03/16 11:15 Urine Urobilinogen 0.2 (NORMAL) E.U./dL (NORMAL) 11/03/16 11:15 Ur Leukocyte Esterase MODERATE (NEGATIVE) H 11/03/16 11:15 Urine RBC 0-5 /HPF (0-5) 11/03/16 11:15 Urine WBC >25 /HPF (0-5) H 11/03/16 11:15 Urine WBC Clumps PRESENT 11/03/16 11:15 Ur Epithelial Cells FEW Renal Tubular /HPF (<= Few) 11/03/16 11:15 Ur Squamous Epith Cells MOD Squamous (<= Few) H 11/03/16 11:15 Urine Bacteria Few /HPF (None Seen) 11/03/16 11:15 Ur Microscopic Review INDICATED 11/03/16 11:15 Urine Culture Comments NOT INDICATED 11/03/16 11:15
[2016-11-04] MEDS: MONTELUKAST 10 MG TABLET PO SCH (21:22)
[2016-11-05] MEDS: SODIUM CHLORIDE FLUSH 0.9% 10 ML SYRINGE IVP SCH (05:50)
[2016-11-05] MEDS: PHENAZOPYRIDINE 100 MG TABLET PO SCH (05:50)
[2016-11-05] MEDS: NS W/20 MEQ KCL 1,000 ML IV SCH (05:51)
[2016-11-05 06:14] LABS: BASOPHILS % (AUTO) 0.3 %; EOSINOPHILS # (AUTO) 0.3 10^3/uL (0.0-0.7); EOSINOPHILS % (AUTO) 4.5 %; HCT - HEMATOCRIT 24.4 % (37.0-47.0); HGB - HEMOGLOBIN 8.2 g/dL (12.0-16.0); LYMPHOCYTES % (AUTO) 13.5 %; MEAN CORPUSCULAR HEMOGLOBIN 30.5 pg (27.0-31.0); MEAN CORPUSCULAR HGB CONC 33.4 g/dL (32.0-36.0); MEAN CORPUSCULAR VOLUME 91.2 fL (81.0-99.0); MEAN PLATELET VOLUME 9.4 fL (7.9-10.8); MONOCYTES # (AUTO) 0.6 10^3/uL (0.0-1.0); MONOCYTES % (AUTO) 8.4 %; NEUTROPHILS # (AUTO) 5.2 10^3/uL (1.5-6.6); NEUTROPHILS % (AUTO) 73.3 %; RED BLOOD COUNT 2.68 10^6/uL (4.20-5.40); RED CELL DISTRIBUTION WIDTH 13.6 % (12.0-15.0); UNCORRECTED WHITE BLOOD COUNT 7.1 x10^3/uL; WHITE BLOOD COUNT 7.1 x10^3/uL (4.8-10.8)
[2016-11-05 06:27] LABS: ALBUMIN/GLOBULIN RATIO 1.2 (1.0-2.2); BILIRUBIN,TOTAL 0.4 mg/dL (0.2-1.0); BUN - BLOOD UREA NITROGEN 8 mg/dL (6-20); CALCIUM 7.6 mg/dL (8.5-10.3); CARBON DIOXIDE - CO2 22 mmol/L (21-32); CHLORIDE 112 mmol/L (101-111); CREATININE 0.7 mg/dL (0.4-1.0); GFR - MDRD 81 (>89); GLUCOSE 122 mg/dL (70-100); MAGNESIUM 1.4 mg/dL (1.7-2.8); PHOSPHORUS 2.6 mg/dL (2.5-4.6); SODIUM 140 mmol/L (135-145); TOTAL PROTEIN 5.5 g/dL (6.7-8.2)
[2016-11-05 06:40] LABS: CALCIUM, IONIZED 0.97 mmol/L (1.15-1.33); VBG PH 7.394 (7.31-7.41)
[2016-11-05] MEDS: SODIUM CHLORIDE FLUSH 0.9% 10 ML SYRINGE IVP PRN (06:48)
[2016-11-05] MEDS ORDERED: MAGNESIUM OXIDE 400 MG TABLET PO SCH (08:00)
[2016-11-05 08:26] LABS: INR 1.1 (0.8-1.2); PT - PROTHROMBIN TIME 12.3 secs (9.9-12.6)
[2016-11-05] MEDS ORDERED: CALCIUM GLUCONATE 2,000 MG in SODIUM CHLORIDE 0.9% 100ML 100 ML IV SCH (08:30)
[2016-11-05 08:40] LABS: IRON 18 ug/dL (28-170); TOTAL IRON BINDING CAPACITY 274 ug/dL (250-450); TRANSFERRIN 196 mg/dL (192-382)
[2016-11-05] MEDS: INSULIN ASPART 300 UNIT/3 ML PEN SUBQ SCH (08:44)
[2016-11-05] MEDS: CARBIDOPA/LEVODOPA ER 25 MG/100 MG TABLET PO SCH (08:48)
[2016-11-05] MEDS: ENOXAPARIN 40 MG/0.4 ML SYRINGE SUBQ SCH (08:49)
[2016-11-05] MEDS: FAMOTIDINE 20 MG TABLET PO SCH (08:50)
[2016-11-05] MEDS: FLUoxetine 10 MG CAPSULE PO SCH (08:51)
[2016-11-05] MEDS: OXYBUTYNIN 5MG TABLET PO SCH (08:53)
[2016-11-05] MEDS: POLYETHYLENE GLYCOL 3350 17 GM PACKET PO SCH (08:54)
[2016-11-05 08:58] LABS: FERRITIN 115.9 ng/mL (11.0-306.8)
[2016-11-05] MEDS: hydroCHLOROthiazide 25 MG TABLET PO SCH (09:27)
[2016-11-05] MEDS: ENALAPRIL 5 MG TABLET PO SCH (09:27)
[2016-11-05] MEDS: SOLIFENACIN SUCCINATE 5 MG PO SCH (09:29)
[2016-11-05] MEDS ORDERED: FERROUS SULFATE 325 MG TABLET PO SCH (09:30)
[2016-11-05] MEDS: cefTRIAXone 2 GM in SODIUM CHLORIDE 0.9% MINIBAG 100 ML IV SCH (09:37)
[2016-11-05] MEDS ORDERED: SODIUM CHLORIDE FLUSH 0.9% 10 ML SYRINGE IVP ONE (09:58)
[2016-11-05] MEDS ORDERED: levoFLOXacin 250 MG TABLET PO SCH (14:00)
--- NOTE | 2016-11-05 14:17 | PROVIDER PROGRESS NOTE ---
Assessment/Plan - Problem List (1) Bacteremia due to Klebsiella pneumoniae Assessment/Plan: Patient presented to the ER with fever, chills, leukocytosis of 17.2, malaise and lethargy Found to have UTI and improved with abx and IVFs she wanted to go home and therefore was discharged from ER She returned next day as blood cultures were growing Kleb Pneumo likely secondary to her UTI as CXR was negative Patient continued to have have fevers with Tmax of 39.6 on return IV Ceftriaxone x 2 days and cultures show Kleb Pneumo susceptible to Levaquin switch to PO levaquin today Tylenol for fevers No fevers since admission WBC improved to 7.1 Repeat blood cx negative Patient improving (2) Urinary tract infection Conclusion/Plan: Patient presented with fevers, chills, lethargy, malaise and had leukocytosis with positive UA sent home with PO keflex Returned as her blood cx were positive for Kleb Pneumo and continued to spike fevers but WBC improved Stopped Keflex IV ceftriaxone x 2 days now switch to PO levaquin as kleb pneumo susceptible to levaquin Tylenol for fevers CT abd/pelvis showed small (1-2mm) bilateral kidney stones which are non obstructing Improving Qualifiers: Urinary tract infection type: acute cystitis Hematuria presence: without hematuria Qualified Code(s): N30.00 - Acute cystitis without hematuria (3) Anemia Conclusion/Plan: Patients Hb dropped from 11.6 to 8.2 over the last 3 days Patient was having diarrhea yesterday but did not have any bloody or black stools Given this dropping hb patient needs further work up Iron studies, B12, Folate, LDH and Haptoglobin Monitor stools UA positive for RBCs but no gross hematuria Monitor H&H q6 (4) Diabetes Conclusion/Plan: Recently diagnosed with DM which is diet controlled HbA1C is 6.8 Monitor BG ACHS SS insulin Diabetic diet IVFs Stable Qualifiers: Diabetes mellitus type: type 2 Diabetes mellitus complication detail: with nephropathy Diabetes mellitus longterm insulin use: without longterm use (5) Hypertension Conclusion/Plan: BP stable Continue home meds Monitor closely Qualifiers: Hypertension type: essential hypertension Qualified Code(s): I10 - Essential (primary) hypertension (6) Depression Conclusion/Plan: Continue prozac Mood stable (7) Prophylactic use of low molecular weight heparin for venous thromboembolism (VTE) Conclusion/Plan: Place on lovenox while hospitalized - Current Meds Current Meds: Current Medications Generic Name Dose Route Start Last Admin Trade Name Freq PRN Reason Stop Dose Admin Acetaminophen 650 mg 11/03/16 13:39 11/04/16 15:09 Tylenol PO 650 mg Q4HR PRN Administration Pain 1 to 4 Carbidopa/Levodopa 1 tab 11/03/16 21:00 11/05/16 08:48 Sinemet Cr 25 Mg/100 Mg PO 1 tab BID KEL Administration Enalapril Maleate 10 mg 11/04/16 09:00 11/05/16 09:27 Vasotec PO 10 mg DAILY KEL Administration Enoxaparin Sodium 40 mg 11/04/16 09:00 11/05/16 08:49 Lovenox SUBQ 40 mg DAILY KEL Administration Famotidine 20 mg 11/04/16 09:00 11/05/16 08:50 Pepcid PO 20 mg DAILY KEL Administration Ferrous Sulfate 325 mg 11/05/16 09:30 11/05/16 10:34 Feosol PO 325 mg BIDWM KEL Administration Fluoxetine HCl 40 mg 11/04/16 09:00 11/05/16 08:51 Prozac PO 40 mg DAILY KEL Administration Gabapentin 300 mg 11/04/16 17:00 11/04/16 17:01 Neurontin PO 300 mg 1700 KEL Administration Hydrochlorothiazide 25 mg 11/04/16 09:00 11/05/16 09:27 Hydrodiuril PO 25 mg DAILY KEL Administration Ibuprofen 600 mg 11/03/16 13:39 11/03/16 20:17 Motrin PO 600 mg Q6HR PRN Administration Pain 1 to 4 Insulin Aspart 1 - 5 unit 11/03/16 17:00 11/05/16 08:44 Novolog SUBQ Not Given 0800,1200,1700,2100 [facility] Protocol Magnesium Oxide 400 mg 11/05/16 08:00 11/05/16 09:26 Mag Ox PO 400 mg DAILYWM KEL Administration Montelukast Sodium 10 mg 11/03/16 21:00 11/04/16 21:22 Singulair PO 10 mg QPM KEL Administration Non-Formulary Medication 5 mg 11/04/16 09:00 11/05/16 09:29 Solifenacin Succinate [Vesicare] PO Not Given DAILY KEL Oxybutynin Chloride 5 mg 11/03/16 21:00 11/05/16 08:53 Ditropan PO 5 mg BID KEL Administration Polyethylene Glycol 17 gm 11/04/16 09:00 11/05/16 08:54 Miralax PO Not Given DAILY KEL Sodium Chloride 10 ml 11/03/16 13:31 11/05/16 06:48 Normal Saline Flush 0.9% IVP 10 ml PRN PRN Administration NEEDED PER PROVIDER ORDERS Sodium Chloride 10 ml 11/03/16 14:00 11/05/16 05:50 Normal Saline Flush 0.9% IVP 10 ml Q8HR KEL Administration - Lab Result Lab results reviewed: Yes Fish Bone Diagrams: 11/05/16 05:34 11/05/16 05:34 - Diagnostic Imaging Results Diagnostic Imaging Results: Final report reviewed - Additional Planning Condition/Complexity: Improved My Orders: My Active Orders 11/04/16 17:00 Gabapentin [Neurontin] 300 mg PO 1700 11/05/16 CBC - COMP BLD CT W/AUTO DIFF [HEME] Routine 11/05/16 08:00 Magnesium Oxide [Mag Ox] 400 mg PO DAILYWM 11/05/16 08:10 HAPTOGLOBIN [REFLAB] Urgent 11/05/16 09:30 Ferrous Sulfate [Feosol] 325 mg PO BIDWM 11/05/16 14:00 levoFLOXacin [Levaquin] 750 mg PO DAILY 11/05/16 21:00 CBC - COMP BLD CT W/AUTO DIFF [HEME] Timed 11/06/16 05:00 CBC - COMP BLD CT W/AUTO DIFF [HEME] DAILYLAB CMP, RFLX TO IONIZED CA IF [CHEM] DAILYLAB MAGNESIUM [CHEM] DAILYLAB PHOSPHORUS [CHEM] DAILYLAB 11/07/16 05:00 CBC - COMP BLD CT W/AUTO DIFF [HEME] DAILYLAB CMP, RFLX TO IONIZED CA IF [CHEM] DAILYLAB MAGNESIUM [CHEM] DAILYLAB PHOSPHORUS [CHEM] DAILYLAB 11/08/16 05:00 CBC - COMP BLD CT W/AUTO DIFF [HEME] DAILYLAB CMP, RFLX TO IONIZED CA IF [CHEM] DAILYLAB MAGNESIUM [CHEM] DAILYLAB PHOSPHORUS [CHEM] DAILYLAB Plan Discussed with:: Patient, Spouse Time Spent: 31-60 minutes Subjective - Subjective Patient Reports: Feeling Better (Patient states that she feels better. She denies any fevers or chills since admission. She denies any nuasea or vomiting. She denies any hematuria, dark or bloody stools.) Nursing Reports: No Complaints Objective Vital Signs: Vital Signs - 24 hr 11/04/16 11/04/16 11/04/16 15:11 15:36 19:05 Temperature 38.5 C H 38.5 C H Heart Rate 71 Heart Rate [ 74 Brachial] Respiratory 18 16 Rate Blood Pressure 144/64 H [Right Brachial artery] O2 Saturation 97 11/04/16 11/05/16 11/05/16 19:44 05:12 07:45 Temperature 37.4 C 37.3 C Heart Rate 77 Heart Rate [ 72 Brachial] Respiratory 18 16 Rate Blood Pressure 141/66 H [Right Brachial artery] O2 Saturation 98 Oxygen O2 Source Room air I&O (Last 24 Hrs): Intake and Output Totals x24h 11/03/16 11/04/16 11/05/16 23:59 23:59 23:59 Intake Total 1215 4280 1584 Output Total 1400 900 Balance 1215 2880 684 General: Alert, Oriented x3, Cooperative, No acute distress HEENT: Atraumatic, PERRLA, EOMI, Mucous membr. moist/pink Neck: Supple, No JVD, No thyromegaly, +2 carotid pulse wo bruit, No LAD Lymphatic: no adenopathy Neuro: Alert, Non Focal, CN 2-12 Grossly Intact, Oriented Times 3 Cardiovascular: Regular rate, Normal S1, Normal S2, No murmurs Respiratory: Chest non-tender, No respiratory distress, Breath sounds nml Abdomen: Normal bowel sounds, Soft, No tenderness, No hepatospenomegaly Extremities: No clubbing, No cyanosis, No edema, Normal pulses, No tenderness/ swelling Skin: No rashes, No breakdown - Results Results: Laboratory Results WBC 7.1 x10^3/uL (4.8-10.8) 11/05/16 05:34 RBC 2.68 10^6/uL (4.20-5.40) L 11/05/16 05:34 Hgb 8.2 g/dL (12.0-16.0) L 11/05/16 05:34 Hct 24.4 % (37.0-47.0) L 11/05/16 05:34 MCV 91.2 fL (81.0-99.0) 11/05/16 05:34 MCH 30.5 pg (27.0-31.0) 11/05/16 05:34 MCHC 33.4 g/dL (32.0-36.0) 11/05/16 05:34 RDW 13.6 % (12.0-15.0) 11/05/16 05:34 Plt Count 134 10^3/uL (130-450) 11/05/16 05:34 MPV 9.4 fL (7.9-10.8) 11/05/16 05:34 Neut # 5.2 10^3/uL (1.5-6.6) 11/05/16 05:34 Lymph # 1.0 10^3/uL (1.5-3.5) L 11/05/16 05:34 [place] # 0.6 10^3/uL (0.0-1.0) 11/05/16 05:34 Eos # 0.3 10^3/uL (0.0-0.7) 11/05/16 05:34 Baso # 0.0 10^3/uL (0.0-0.1) 11/05/16 05:34 Absolute Nucleated RBC 0.00 x10^3/uL 11/05/16 05:34 Nucleated RBCs 0.0 /100WBC 11/05/16 05:34 PT 12.3 secs (9.9-12.6) 11/05/16 08:10 INR 1.1 (0.8-1.2) 11/05/16 08:10 VBG pH 7.394 (7.31-7.41) 11/05/16 05:34 Ionized Calcium 0.97 mmol/L (1.15-1.33) L 11/05/16 05:34 Sodium 140 mmol/L (135-145) 11/05/16 05:34 Potassium 5.0 mmol/L (3.5-5.0) 11/05/16 05:34 Chloride 112 mmol/L (101-111) H 11/05/16 05:34 Carbon Dioxide 22 mmol/L (21-32) 11/05/16 05:34 Anion Gap 6.0 (6-13) 11/05/16 05:34 BUN 8 mg/dL (6-20) 11/05/16 05:34 Creatinine 0.7 mg/dL (0.4-1.0) 11/05/16 05:34 Estimated GFR (MDRD) 81 (>89) L 11/05/16 05:34 Glucose 122 mg/dL (70-100) H 11/05/16 05:34 POC Whole Bld Glucose 101 mg/dL (70 - 100) H 11/05/16 12:13 Glycated Hemoglobin 6.8 % (4.6-6.2) H 11/03/16 12:20 Estim Average Glucose 148 (70-100) H 11/03/16 12:20 Calcium 7.6 mg/dL (8.5-10.3) L 11/05/16 05:34 Ionized Calcium YES 11/05/16 05:34 Phosphorus 2.6 mg/dL (2.5-4.6) 11/05/16 05:34 Magnesium 1.4 mg/dL (1.7-2.8) L 11/05/16 05:34 Iron 18 ug/dL (28-170) L 11/05/16 08:10 TIBC 274 ug/dL (250-450) 11/05/16 08:10 % Saturation 7 % (20-50) L 11/05/16 08:10 Transferrin 196 mg/dL (192-382) 11/05/16 08:10 Ferritin 115.9 ng/mL (11.0-306.8) 11/05/16 08:10 Total Bilirubin 0.4 mg/dL (0.2-1.0) 11/05/16 05:34 AST 39 IU/L (10-42) 11/05/16 05:34 ALT 25 IU/L (10-60) 11/05/16 05:34 Alkaline Phosphatase 56 IU/L (42-121) 11/05/16 05:34 Lactate Dehydrogenase 171 IU/L (91-225) 11/05/16 08:10 Troponin I < 0.04 ng/mL (<0.49) 11/03/16 12:20 Total Protein 5.5 g/dL (6.7-8.2) L 11/05/16 05:34 Albumin 3.0 g/dL (3.2-5.5) L 11/05/16 05:34 Globulin 2.5 g/dL (2.1-4.2) 11/05/16 05:34 Albumin/Globulin Ratio 1.2 (1.0-2.2) 11/05/16 05:34 Lipase 20 U/L (22-51) L 11/03/16 12:20 Vitamin B12 591 pg/mL (180-914) 11/05/16 08:10 Folate 38.00 ng/mL (5.90 - >24.8) 11/05/16 08:10 Urine Color YELLOW 11/03/16 11:15 Urine Clarity SL. CLOUDY (CLEAR) 11/03/16 11:15 Urine pH 6.0 PH (5.0-7.5) 11/03/16 11:15 Ur Specific [place] 1.010 (1.002-1.030) 11/03/16 11:15 Urine Protein NEGATIVE mg/dL (NEGATIVE) 11/03/16 11:15 Urine Glucose (UA) NEGATIVE mg/dL (NEGATIVE) 11/03/16 11:15 Urine Ketones NEGATIVE mg/dL (NEGATIVE) 11/03/16 11:15 Urine Occult Blood SMALL (NEGATIVE) H 11/03/16 11:15 Urine Nitrite NEGATIVE (NEGATIVE) 11/03/16 11:15 Urine Bilirubin NEGATIVE (NEGATIVE) 11/03/16 11:15 Urine Urobilinogen 0.2 (NORMAL) E.U./dL (NORMAL) 11/03/16 11:15 Ur Leukocyte Esterase MODERATE (NEGATIVE) H 11/03/16 11:15 Urine RBC 0-5 /HPF (0-5) 11/03/16 11:15 Urine WBC >25 /HPF (0-5) H 11/03/16 11:15 Urine WBC Clumps PRESENT 11/03/16 11:15 Ur Epithelial Cells FEW Renal Tubular /HPF (<= Few) 11/03/16 11:15 Ur Squamous Epith Cells MOD Squamous (<= Few) H 11/03/16 11:15 Urine Bacteria Few /HPF (None Seen) 11/03/16 11:15 Ur Microscopic Review INDICATED 11/03/16 11:15 Urine Culture Comments NOT INDICATED 11/03/16 11:15
[2016-11-05 14:24] LABS: BASOPHILS % (AUTO) 0.5 %; EOSINOPHILS # (AUTO) 0.4 10^3/uL (0.0-0.7); EOSINOPHILS % (AUTO) 5.3 %; HCT - HEMATOCRIT 29.5 % (37.0-47.0); LYMPHOCYTES # (AUTO) 1.2 10^3/uL (1.5-3.5); LYMPHOCYTES % (AUTO) 16.2 %; MEAN CORPUSCULAR HEMOGLOBIN 30.3 pg (27.0-31.0); MEAN CORPUSCULAR HGB CONC 34.1 g/dL (32.0-36.0); MEAN CORPUSCULAR VOLUME 88.8 fL (81.0-99.0); MEAN PLATELET VOLUME 8.7 fL (7.9-10.8); MONOCYTES # (AUTO) 0.8 10^3/uL (0.0-1.0); MONOCYTES % (AUTO) 10.3 %; NEUTROPHILS # (AUTO) 5.1 10^3/uL (1.5-6.6); NEUTROPHILS % (AUTO) 67.7 %; RED BLOOD COUNT 3.32 10^6/uL (4.20-5.40); RED CELL DISTRIBUTION WIDTH 13.5 % (12.0-15.0); UNCORRECTED WHITE BLOOD COUNT 7.5 x10^3/uL; WHITE BLOOD COUNT 7.5 x10^3/uL (4.8-10.8)
--- NOTE | 2016-11-05 15:14 | Discharge Plan ---
Discharge Plan Disposition: Home, Self Care Condition: Good Prescriptions: Ferrous Sulfate 325 mg PO DAILY #30 tablet levoFLOXacin [Levaquin] 750 mg PO DAILY #42 tablet Diet: Diabetic Activity Restrictions: No Restrictions Shower Restrictions: No Driving Restrictions: No Weight Bearing: Full Weight Additional Instructions or Follow Up instructions: You were admitted for bacteremia which is a blood stream infection. The source of the infection appears to have been a urinary tract infection which spread into the blood stream. The infection appears to be getting better and you are being discharged home with an oral antibiotic that you will need to take for 14 days to complete the course of treatment. You were also found to have iron deficiency anemia during this hospitalization and have been prescribed iron supplements to take and should follow up with your PCP for further work up. No Smoking: If you smoke, Please STOP! Call for help. Follow-up with: Alejandro Ko MD [Physician No Access] -
--- NOTE | 2016-11-05 15:23 | DISCHARGE SUMMARY ---
Discharge Summary Admit Date: 11/03/16 Discharge Date: 11/05/16 Discharging Provider: Joseph Ayoub MD Primary Care Provider: Alejandro Ko MD Code Status: Attempt Resuscitation Condition at Discharge: Good Discharge Disposition: 01 Home, Self Care - DIAGNOSES Admission Diagnoses: 1. Bacteremia due to Klebsiella pneumonia 2. Urinary tract infection 3. Hypokalemia 4. Diabetes 5. Hypertension 6. Depression 7. DVT prophylaxis Discharge Diagnoses with Status of Each Condition: 1. Bacteremia due to Klebsiella pneumonia: Resolving 2. Urinary tract infection: Resolving 3. Iron deficiency anemia: Stable 4. Hypokalemia: Resolved 5. Diabetes: Stable 6. Hypertension: Stable 7. Depression: Stable 8. Nephrolithiasis: Stable 9. DVT prophylaxis - HPI History of Present Illness: Patient is a 76-year-old female with a past medical history significant for hypertension, asthma, depression, migraine headaches, hyperlipidemia, restless leg syndrome, peripheral neuropathy and recent diagnosis of diet-controlled diabetes type 2 who presented to the emergency department with a chief complaint of positive blood cultures. The patient had come into the emergency department yesterday with complaints of chills, generalized weakness and lethargy. She states that prior to yesterday she was in her normal state of health but when she came to wake up yesterday morning she felt extremely fatigued and could not get out of bed she slept into the afternoon at which point her became concerned as the patient was having rigors and was very weak and lethargic. The patient was brought into the emergency department via ambulance. The patient denied any headaches, blurred vision, runny nose, sore throat, cough, chest pain, shortness of air, abdominal pain, urinary urgency, urinary frequency, dysuria, focal neurologic deficits, muscle aches or joint pains. The patient did admit to a decreased appetite, nausea and stated that she did vomit yesterday. On presentation to the emergency room yesterday the patient did appear to be quite ill and was febrile with a temperature of 38.3. The patient had a leukocytosis with a WBC of 17.2 but her lactic acid was normal. The patient's urinalysis was grossly positive and she was determined to have a urinary tract infection. The patient was given IV fluids in the emergency department and started on antibiotics. The patient seemed to be much improved and although the emergency room physician wanted the patient to stay and be hospitalized the patient stated that she felt much better and wanted to go home. The patient was discharged home and states that she has been feeling better since yesterday however she does continue to have episodic chills. Today the patient's blood cultures returned and she was growing Klebsiella pneumonia with identification and sensitivities to follow therefore she was called into the emergency department to be started on IV antibiotics and admitted to the hospital. On presentation to the emergency room today the patient is again febrile with a temperature of 39.6 however she appears to be much less ill appearing. The remainder of her vital signs were within normal limits her leukocytosis had improved. Given that patient was still febrile and sensitivities had not returned we did admit to the patient to the hospital with bacteremia secondary to UTI. - HOSPITAL COURSE Hospital Course: During hospitalization patient was treated with IV ceftriaxone for Klebsiella pneumonia bacteremia and urinary tract infection. She received 2 days of IV antibiotics she did have fevers on 11/03/2016 and 11/04/2016 her last fever was more than 24 hours prior to discharge. The patient's blood culture sensitivities showed that Klebsiella pneumonia was sensitive to Levaquin. The patient was changed to Levaquin oral prior to discharge. The patient's WBC improved from 17.2 - 7.1 by the time of discharge. During the hospitalization the patient did have a drop in her hemoglobin from 11.6 - 8.2 this was thought to be secondary to hemodilution as the patient's repeat hemoglobin was greater than 10 prior to discharge. The patient did undergo iron studies which did reveal that she had iron deficiency anemia. The patient underwent a CT of her abdomen pelvis which did show some small 1-2 mm bilateral kidney stones which were nonobstructing. The patient was discharged home in stable condition and will complete a two-week course of Levaquin to treat her bacteremia with Klebsiella pneumonia. The patient was also prescribed ferrous sulfate for treatment of iron deficiency anemia. The patient will follow up with her primary care physician regarding further workup for her iron deficiency anemia. - ALLERGIES Allergies/Adverse Reactions: Allergies Allergy/AdvReac Type Severity Reaction Status Date / Time [id number] Reductase Allergy Unknown Verified 11/03/16 10:24 Inhibitor - MEDICATIONS Home Medications: Ambulatory Orders Medication Instructions Recorded Confirmed Albuterol 2.5 mg INH Q6H PRN 11/02/16 11/03/16 Cephalexin [Keflex] 500 mg PO QID #20 capsule 11/02/16 11/03/16 Enalapril/Hydrochlorothiazide 1 tab PO DAILY 11/02/16 11/03/16 [Enalapril-Hctz 10-25 mg Tablet] Fluoxetine HCl [Prozac] 40 mg PO DAILY 11/02/16 11/03/16 Gabapentin 300 mg PO DAILY 11/02/16 11/03/16 Montelukast [Singulair] 10 mg PO DAILY 11/02/16 11/03/16 Oxybutynin Chloride [Ditropan Xl] 10 mg PO DAILY 11/02/16 11/03/16 Solifenacin Succinate [Vesicare] 5 mg PO DAILY 11/02/16 11/03/16 Sumatriptan Succinate [Imitrex] 100 mg PO DAILY 11/02/16 11/03/16 Carbidopa/Levodopa ER 25/100 1 tab PO BID 11/03/16 11/03/16 [Sinemet Cr 25 mg/100 mg] Ferrous Sulfate 325 mg PO DAILY #30 tablet 11/05/16 levoFLOXacin [Levaquin] 750 mg PO DAILY #42 tablet 11/05/16 - PHYSICAL EXAM AT DISCHARGE General Appearance: positive: No acute distress, Alert Eyes Bilateral: positive: Normal inspection, PERRL, EOMI, No lid inflammation, Conjunctivae nml, No scleral icterus ENT: positive: ENT inspection nml, Pharynx nml, No signs of dehydration. negative: Purulent nasal drainage, Pharyngeal erythema, Oral lesions Neck: positive: Nml inspection, Thyroid nml, No JVD, Trachea midline. negative : Lymphadenopathy (R), Lymphadenopathy (L), Carotid bruit, Tracheal deviation Respiratory: positive: Chest non-tender, No respiratory distress, Breath sounds nml. negative: Wheezes, Rales, Rhonchi Cardiovascular: positive: Regular rate & rhythm, No murmur, No gallop Peripheral Pulses: positive: 2+ Abdomen: positive: Non-tender, No organomegaly, Nml bowel sounds, No distention. negative: Guarding, Rebound, Hepatomegaly Back: positive: Nml inspection. negative: CVA tenderness (R), CVA tenderness (L ) Skin: positive: Color nml, No rash, Warm. negative: Cyanosis, Pallor Extremities: positive: Non-tender, Full ROM, Nml appearance, No pedal edema Neurologic/Psychiatric: positive: Oriented x3, CN's nml (2-12), Motor nml, Sensation nml, Mood/affect nml - LABS Result Diagrams: 11/05/16 14:18 11/05/16 05:34 Other Lab Results: Laboratory Results WBC 7.5 x10^3/uL (4.8-10.8) 11/05/16 14:18 RBC 3.32 10^6/uL (4.20-5.40) L 11/05/16 14:18 Hgb 10.0 g/dL (12.0-16.0) L 11/05/16 14:18 Hct 29.5 % (37.0-47.0) L 11/05/16 14:18 MCV 88.8 fL (81.0-99.0) 11/05/16 14:18 MCH 30.3 pg (27.0-31.0) 11/05/16 14:18 MCHC 34.1 g/dL (32.0-36.0) 11/05/16 14:18 RDW 13.5 % (12.0-15.0) 11/05/16 14:18 Plt Count 174 10^3/uL (130-450) 11/05/16 14:18 MPV 8.7 fL (7.9-10.8) 11/05/16 14:18 Neut # 5.1 10^3/uL (1.5-6.6) 11/05/16 14:18 Lymph # 1.2 10^3/uL (1.5-3.5) L 11/05/16 14:18 [place] # 0.8 10^3/uL (0.0-1.0) 11/05/16 14:18 Eos # 0.4 10^3/uL (0.0-0.7) 11/05/16 14:18 Baso # 0.0 10^3/uL (0.0-0.1) 11/05/16 14:18 Absolute Nucleated RBC 0.00 x10^3/uL 11/05/16 14:18 Nucleated RBCs 0.0 /100WBC 11/05/16 14:18 PT 12.3 secs (9.9-12.6) 11/05/16 08:10 INR 1.1 (0.8-1.2) 11/05/16 08:10 VBG pH 7.394 (7.31-7.41) 11/05/16 05:34 Ionized Calcium 0.97 mmol/L (1.15-1.33) L 11/05/16 05:34 Sodium 140 mmol/L (135-145) 11/05/16 05:34 Potassium 5.0 mmol/L (3.5-5.0) 11/05/16 05:34 Chloride 112 mmol/L (101-111) H 11/05/16 05:34 Carbon Dioxide 22 mmol/L (21-32) 11/05/16 05:34 Anion Gap 6.0 (6-13) 11/05/16 05:34 BUN 8 mg/dL (6-20) 11/05/16 05:34 Creatinine 0.7 mg/dL (0.4-1.0) 11/05/16 05:34 Estimated GFR (MDRD) 81 (>89) L 11/05/16 05:34 Glucose 122 mg/dL (70-100) H 11/05/16 05:34 POC Whole Bld Glucose 101 mg/dL (70 - 100) H 11/05/16 12:13 Glycated Hemoglobin 6.8 % (4.6-6.2) H 11/03/16 12:20 Estim Average Glucose 148 (70-100) H 11/03/16 12:20 Calcium 7.6 mg/dL (8.5-10.3) L 11/05/16 05:34 Ionized Calcium YES 11/05/16 05:34 Phosphorus 2.6 mg/dL (2.5-4.6) 11/05/16 05:34 Magnesium 1.4 mg/dL (1.7-2.8) L 11/05/16 05:34 Iron 18 ug/dL (28-170) L 11/05/16 08:10 TIBC 274 ug/dL (250-450) 11/05/16 08:10 % Saturation 7 % (20-50) L 11/05/16 08:10 Transferrin 196 mg/dL (192-382) 11/05/16 08:10 Ferritin 115.9 ng/mL (11.0-306.8) 11/05/16 08:10 Total Bilirubin 0.4 mg/dL (0.2-1.0) 11/05/16 05:34 AST 39 IU/L (10-42) 11/05/16 05:34 ALT 25 IU/L (10-60) 11/05/16 05:34 Alkaline Phosphatase 56 IU/L (42-121) 11/05/16 05:34 Lactate Dehydrogenase 171 IU/L (91-225) 11/05/16 08:10 Troponin I < 0.04 ng/mL (<0.49) 11/03/16 12:20 Total Protein 5.5 g/dL (6.7-8.2) L 11/05/16 05:34 Albumin 3.0 g/dL (3.2-5.5) L 11/05/16 05:34 Globulin 2.5 g/dL (2.1-4.2) 11/05/16 05:34 Albumin/Globulin Ratio 1.2 (1.0-2.2) 11/05/16 05:34 Lipase 20 U/L (22-51) L 11/03/16 12:20 Vitamin B12 591 pg/mL (180-914) 11/05/16 08:10 Folate 38.00 ng/mL (5.90 - >24.8) 11/05/16 08:10 Urine Color YELLOW 11/03/16 11:15 Urine Clarity SL. CLOUDY (CLEAR) 11/03/16 11:15 Urine pH 6.0 PH (5.0-7.5) 11/03/16 11:15 Ur Specific [place] 1.010 (1.002-1.030) 11/03/16 11:15 Urine Protein NEGATIVE mg/dL (NEGATIVE) 11/03/16 11:15 Urine Glucose (UA) NEGATIVE mg/dL (NEGATIVE) 11/03/16 11:15 Urine Ketones NEGATIVE mg/dL (NEGATIVE) 11/03/16 11:15 Urine Occult Blood SMALL (NEGATIVE) H 11/03/16 11:15 Urine Nitrite NEGATIVE (NEGATIVE) 11/03/16 11:15 Urine Bilirubin NEGATIVE (NEGATIVE) 11/03/16 11:15 Urine Urobilinogen 0.2 (NORMAL) E.U./dL (NORMAL) 11/03/16 11:15 Ur Leukocyte Esterase MODERATE (NEGATIVE) H 11/03/16 11:15 Urine RBC 0-5 /HPF (0-5) 11/03/16 11:15 Urine WBC >25 /HPF (0-5) H 11/03/16 11:15 Urine WBC Clumps PRESENT 11/03/16 11:15 Ur Epithelial Cells FEW Renal Tubular /HPF (<= Few) 11/03/16 11:15 Ur Squamous Epith Cells MOD Squamous (<= Few) H 11/03/16 11:15 Urine Bacteria Few /HPF (None Seen) 11/03/16 11:15 Ur Microscopic Review INDICATED 11/03/16 11:15 Urine Culture Comments NOT INDICATED 11/03/16 11:15 - DIAGNOSTIC IMAGING Diagnostic Imaging Results: Final report reviewed Diagnostic Imaging Results Comments: CT abdomen and pelvis: Impression: A 1-2 mm nonobstructing renal calculi bilaterally. No evidence of hydronephrosis. Moderate hiatal hernia. - FOLLOW UP Follow Up: Patient was prescribed PO levaquin for her bacteremia and will complete 14 days of treatment. She was also prescribed ferrous sulfate for iron deficiency. She will follow up with her PCP for further work up for her iron deficiency anemia including possible EGD and cystoscopy. - TIME SPENT Time Spent in Discharge (Minutes): 40
[2016-11-05 15:36] VITALS: BP 131/69
== END 2016-11-05 16:10 | disposition home or self-care (01) | DRG 872 ==
LOC: ED 10:10 → MS3 13:31
PROVIDERS: ADMIT Internal Medicine; ATTEND Internal Medicine
DX: R78.81 Bacteremia (principal); N30.00 Acute cystitis without hematuria; N30.01 Acute cystitis with hematuria; E11.9 Type 2 diabetes mellitus without complications; B96.1 Klebsiella pneumoniae [K. pneumoniae] as the cause of diseases classified elsewhere; D50.9 Iron deficiency anemia, unspecified; E87.6 Hypokalemia; E11.42 Type 2 diabetes mellitus with diabetic polyneuropathy; E11.21 Type 2 diabetes mellitus with diabetic nephropathy; I10 Essential (primary) hypertension; F32.9 Major depressive disorder, single episode, unspecified; N20.0 Calculus of kidney; E86.0 Dehydration; J45.909 Unspecified asthma, uncomplicated; E78.5 Hyperlipidemia, unspecified; G25.81 Restless legs syndrome
CPT/HCPCS: 36415; 74176; 80053; 81001; 81003; 82330; 82607; 82728; 82746; 83010; 83036; 83540; 83615; 83690; 83735; 84100; 84466; 84484; 85025; 85610; 87040; 87086; 99283; 99284; 99285

== ENCOUNTER 2018-05-11 20:43 | Emergency (ER) | payer MEDICARE, OTHER ==
[2018-05-11] MEDS ORDERED: EPINEPHrine 1 MG/ML AMP ONE (21:00)
[2018-05-11] MEDS ORDERED: EPINEPHrine 1 MG/ML AMP IM STA (21:01)
[2018-05-11] MEDS ORDERED: methylPREDNISolone SUCCINATE 125 MG/2 ML VIAL IVP STA (21:01)
[2018-05-11] MEDS ORDERED: diphenhydrAMINE INJ 50 MG/ML VIAL IVP STA (21:01)
--- NOTE | 2018-05-11 21:14 | ED Physician Documentation ---
PD HPI SKIN - Stated complaint Stated Complaint: ALLERGIC REACTION - Chief complaint Chief Complaint: Allergic Rx - History obtained from History obtained from: Patient - History of Present Illness Timing - onset: Today (This is a 78-year-old woman who presents by private vehicle with her . She has a history of allergic reaction while receiving allergy testing many years ago and needed epi for that. Otherwise has no known food allergies. After eating a dinner of macaroni cheese, shrimp, and an orange tonight she developed upper and lower lip swelling, dry throat, and itchy all over with redness and spots throughout her body especially the face and the trunk.) Review of Systems Ten Systems: 10 systems reviewed and negative Constitutional: denies: Fever, Chills Cardiac: denies: Chest pain / pressure, Palpitations Respiratory: denies: Dyspnea, Cough PD PAST MEDICAL HISTORY - Past Medical History Cardiovascular: Hypertension, High cholesterol Respiratory: Asthma Endocrine/Autoimmune: Type 2 diabetes GI: Other : Incontinence HEENT: Chronic vision loss, Chronic hearing loss Psych: Depression Musculoskeletal: Osteoarthritis - Past Surgical History Past Surgical History: Yes General: Other Ortho: Arthroscopic surgery /LABOR RELATIONS SPECIALIST: Hysterectomy HEENT: Cataracts - Present Medications Home Medications: Ambulatory Orders Medication Instructions Recorded Confirmed RX: Albuterol 2.5 mg INH Q6H PRN 11/02/16 11/03/16 RX: Enalapril/Hydrochlorothiazide 1 tab PO DAILY 11/02/16 05/11/18 [Enalapril-Hctz 10-25 mg Tablet] RX: Fluoxetine HCl [Prozac] 40 mg PO DAILY 11/02/16 05/11/18 RX: Gabapentin 300 mg PO TID 11/02/16 05/11/18 RX: Montelukast [Singulair] 10 mg PO DAILY 11/02/16 05/11/18 RX: Solifenacin Succinate 5 mg PO DAILY 11/02/16 05/11/18 [Vesicare] RX: Sumatriptan Succinate [Imitrex] 100 mg PO DAILY PRN 11/02/16 05/11/18 RX: Carbidopa/Levodopa ER 25/100 1 tab PO BID 11/03/16 11/03/16 [Sinemet Cr 25 mg/100 mg] RX: EPINEPHrine [Epinephrine] 0.3 mg IJ ONCE PRN #2 auto.injct 05/11/18 RX: metFORMIN [Glucophage] 1 tab ORAL DAILY 05/11/18 05/11/18 RX: predniSONE [Deltasone] 60 mg PO DAILY 5 Days tablet 05/11/18 - Allergies Allergies/Adverse Reactions: Allergies Allergy/AdvReac Type Severity Reaction Status Date / Time [id number]-[id number] Reductase Allergy Unknown Verified 05/11/18 20:52 Inhibitor - Living Situation Living Situation: reports: With spouse/s.o. - Social History Does the pt smoke?: No Smoking Status: Never smoker Does the pt drink ETOH?: Yes Does the pt have substance abuse?: No - Family History Family history: reports: Non contributory - Immunizations Immunizations are current?: Yes - POLST Patient has POLST: No POLST Status: Full Code PD ED PE NORMAL - Vitals Vital signs reviewed: Yes - General General: Alert and oriented X 3, No acute distress - HEENT HEENT: PERRL, EOMI, Other (She has upper and lower lip angioedema without evidence of retropharyngeal angioedema.) - Neck Neck: Supple, no meningeal sign, No bony TTP - Cardiac Cardiac: RRR, No murmur - Respiratory Respiratory: No respiratory distress, Clear bilaterally - Abdomen Abdomen: Soft, Non tender - Derm Derm: Other (She is diffusely erythematous with hives especially on the face and back.) - Neuro Neuro: Alert and oriented X 3, Normal speech (normal voice) - Psych Psych: Normal mood, Normal affect Results - Vitals Vitals: Vital Signs - 24 hr 05/11/18 05/11/18 05/11/18 20:46 21:23 22:14 Temperature 37.4 C Heart Rate 80 75 76 Respiratory 18 18 18 Rate Blood Pressure 160/79 H 144/79 H 131/70 H O2 Saturation 98 96 95 05/11/18 05/12/18 23:06 00:48 Temperature 36.7 C Heart Rate 77 78 Respiratory 16 22 Rate Blood Pressure 135/72 H 147/75 H O2 Saturation 95 95 Oxygen O2 Source Room air PD MEDICAL DECISION MAKING - ED course ED course: This is a 78-year-old woman who presents with moderate anaphylaxis, likely to shrimp. She was administered IM epinephrine during my initial evaluation and I also ordered IV Solu-Medrol and Benadryl. Her sx quickly abated after the epi and she was observed for several hours without recurrent sx. Departure - Departure Disposition: Home, Self Care Clinical Impression: Anaphylaxis Condition: Good Record reviewed to determine appropriate education?: Yes Instructions: ED Allergic Reaction General Other Prescriptions: RX: EPINEPHrine [Epinephrine] 0.3 mg IJ ONCE PRN #2 auto.injct PRN Reason: Allergy Symptoms RX: predniSONE [Deltasone] 60 mg PO DAILY 5 Days tablet Discharge Date/Time: 05/12/18 00:57
[2018-05-12 00:49] VITALS: BP 147/75
== END 2018-05-12 00:57 | disposition home or self-care (01) ==
LOC: ED 20:43
DX: T78.00XA Anaphylactic reaction due to unspecified food, initial encounter (principal); E78.00 Pure hypercholesterolemia, unspecified; I10 Essential (primary) hypertension; E11.9 Type 2 diabetes mellitus without complications; Z79.84 Long term (current) use of oral hypoglycemic drugs
CPT/HCPCS: 96372; 96374; 96375; 99283; J1200